=== PATIENT | male | born 1965 | race Caucasian/White ===

== ENCOUNTER 2022-05-23 05:57 | Emergency (ER) | payer BC, SELFPAY ==
[2022-05-23] VITALS (10 sets, daily range): BP systolic 97–121; BP diastolic 51–69; PULSE 66–78; RESP 16–18; TEMP 36.6; O2SAT 94–96
--- NOTE | ~2022-05-23 | XR_ITS ---
Clinical Indication: Syncope, Covid PA and lateral views of the chest: Comparison: None Findings: The lungs are clear, without evidence of focal consolidation or pleural effusion. Cardiome diastinal silhouette is within normal limits. Bones and soft tissues are unremarkable. Impression: Normal chest. Reviewed, dictated and finalized at [facility]. N SYSTEM OPERATOR Impression: Normal chest.
--- NOTE | ~2022-05-23 | CT_ITS ---
Non-contrast Head CT History: Headache Technique: Axial non-contrast imaging of the brain was performed. Dose reduction technique was used on this scan by utilizing automated exposure control and iterative reconstruction technique. The dose -length product (DLP) was 605.33 mGy-cm. Findings: There is no evidence of intracranial hemorrhage, mass lesion, or acute infarct. Brain par enchyma appears normal. The ventricles and subarachnoid spaces are normal in size. The calvarium ap pears normal. The visualized paranasal sinuses and mastoid air cells are clear. Impression: No significant abnormality seen. Reviewed, dictated and finalized at location . [employer] PLANT OPERATOR Impression: No significant abnormality seen.
--- NOTE | 2022-05-23 06:02 | ECG_ITS ---
Measurements Intervals [place] Rate: 65 P: 42 [place]: 184 QRS: 13 QRSD: 86 T: 41 QT: 384 QTc: 401 Interpretive Statements SINUS RHYTHM EARLY REPOLARIZATION [ST ELEVATION WITH NORMALLY INFLECTED T WAVE] NO PREVIOUS ECG AVAILABLE FOR COMPARISON Electronically Signed On 05-23-2022 13:19:00 PARKING ASSISTANT by Raphael Bae M.D.
[2022-05-23] MEDS: SODIUM CHLORIDE 0.9% IV 1,000 ML 999 ML IV CONT (06:10)
[2022-05-23 06:12] LABS: Glucose Point of Care 188 mg/dl (65-105)
--- NOTE | 2022-05-23 06:12 | PC.NURSE ---
C-collar removed by Dr. Benavidez at this time.
--- NOTE | 2022-05-23 06:13 | ED.SYNCOPE ---
HPI - Syncope General Chief Complaint: Syncope <Dale Benavidez MD - Last Filed: 05/23/22 07:03> Stated Complaint: FALL S/P SYNCOPE <Dale Benavidez MD - Last Filed: 05/23/22 07:03> Time Seen by Provider: 05/23/22 07:09 <Dale Benavidez MD - Last Filed: 05/23/22 07:03> History of Present Illness HPI narrative: Patient is a 56-year-old male who presents ER status post syncope. Reports he taken his dog outside to use restroom and he was riding on a white board when he felt lightheaded and passed out. He was unconscious for a short amount of time before his son came upstairs to his aid. His son had heard him fall. Patient reports he was diagnosed with COVID on 05/21/2022. He has been having alternating bouts of weakness and feeling fine. He has been feeling particularly weak tonight. He has had fevers and chills. No chest pain or chest pressure. No racing heart. Denies nausea or vomiting at this time. Per EMS blood pressure was in the 90s systolic in route. Patient is not on blood thinners. No pain to his neck and no headache. <Dale Benavidez MD - Last Filed: 05/23/22 07:03> Related Data Allergies/Adverse Reactions: Allergies Allergy/AdvReac Type Severity Reaction Status Date / Time No Known Allergies Allergy Verified 05/23/22 06:05 <Dale Benavidez MD - Last Filed: 05/23/22 07:03> Review of Systems Review of Systems: All systems reviewed & are unremarkable except as noted in HPI and below <Dale Benavidez MD - Last Filed: 05/23/22 07:03> Constitutional: Constitutional: Reports chills, Reports fatigue and Reports fever(s) <Dale Benavidez MD - Last Filed: 05/23/22 07:03> ENT: Denies nasal congestion and Denies sore throat <Dale Benavidez MD - Last Filed: 05/23/22 07:03> Cardiovascular: Cardiovascular: Denies chest pain, Denies rapid heart rate and Denies radiating jaw, neck or arm pain <Dale Benavidez MD - Last Filed: 05/23/22 07:03> Respiratory: Respiratory: Reports cough and Denies dyspnea <Dale Benavidez MD - Last Filed: 05/23/22 07:03> Gastrointestinal: Gastrointestinal: Denies abdominal pain, Denies nausea and Denies vomiting <Dale Benavidez MD - Last Filed: 05/23/22 07:03> Neurologic: Reports syncope, Denies headache(s), Denies focal weakness and Denies numbness <Dale Benavidez MD - Last Filed: 05/23/22 07:03> [facility] Past Medical History Medical History: Medical History (Updated 05/23/22 @ 06:53 by Dale Benavidez MD) Anxiety Diabetes 1.5, managed as type 2 Hyperlipemia Hypertension <Dale Benavidez MD - Last Filed: 05/23/22 07:03> Surgical History Surgical History: Surgical History (Updated 05/23/22 @ 06:15 by Dale Benavidez MD) History of cholecystectomy <Dale Benavidez MD - Last Filed: 05/23/22 07:03> Social History Social History: Social History (Updated 05/23/22 @ 06:15 by Dale Benavidez MD) Smoking status: Never smoker <Dale Benavidez MD - Last Filed: 05/23/22 07:03> Exam Narrative: GENERAL: Well-appearing, well-nourished, and in no acute distress. HEAD: Normocephalic, atraumatic. EYES: PERRL and EOMI. NECK: Supple. Midline tenderness in C-spine. Normal range of motion that is painless. CHEST: Clear to auscultation. No respiratory distress. HEART: Regular rate and rhythm. Normal peripheral pulses. ABDOMEN: Soft, nontender, nondistended. EXTREMITIES: Normal range of motion. No edema. SKIN: Warm, dry, no rash. NEURO: Alert and oriented x3. PSYCH: Normal mood and affect. <Dale Benavidez MD - Last Filed: 05/23/22 07:03> Course Reevaluation(s) Reevaluation #1: Patient presented with syncopal episode that is thought to be due to dehydration, vasovagal. He was found to have sodium of 131. He was given 2 L IVF. He was rule out of [place], significant electrolyte abnormality. He was able to ambulate with out dizziness. HE is comfortable with dischar
[2022-05-23 06:16] LABS: Basophils Percent Auto 0.1 % (0.2-1.2); Eosinophils Percent Auto 0.3 % (0-4.4); Hematocrit 45.1 % (42.0-52.0); Hemoglobin 15.1 g/dL (14.0-18.0); Immature Granulocyte Absolute 0.01 K/mm3 (0.00-0.031); Immature Granulocyte Percent A 0.1 % (0-0.5); Lymphocytes Absolute Auto 1.25 K/mm3 (0.9-3.2); Lymphocytes Percent Auto 17.4 % (18.3-44.2); Mean Corpuscular HGB Conc 33.5 g/dl (32-36); Mean Corpuscular Hemoglobin 31.1 pg (26-34); Mean Platelet Volume 9.4 fl (7.4-10.4); Monocytes Absolute Auto 0.7 K/mm3 (0.1-0.6); Monocytes Percent Auto 9.9 % (2.6-8.5); Neutrophils Absolute Auto 5.2 K/mm3 (1.3-6.7); Neutrophils Percent Auto 72.2 % (45.5-73.1); Platelet Count Result 141 k/mm3 (150-375); Red Blood Count 4.85 M/mm3 (4.6-6.20); Red Cell Distribution Width 12.1 % (11.5-14.5); White Blood Count 7.2 K/mm3 (4.5-10.0)
[2022-05-23 06:25] LABS: Lactic Acid Reflex 1.3 mmol/L (0.7-2.0)
[2022-05-23 06:26] LABS: Alanine Aminotransferase 36 U/L (6-50); Albumin Level 4.4 g/dL (3.5-5.1); Alkaline Phosphatase 53 U/L (38-126); Anion Gap 8 mmol/L (8-16); Aspartate Amino Transferase 38 U/L (17-59); Bilirubin,Total 0.8 mg/dL (0.2-1.3); Blood Urea Nitrogen 19 mg/dL (9-20); Calcium 8.8 mg/dL (8.4-10.2); Carbon Dioxide 28 mmol/L (22-30); Chloride 95 mmol/L (98-107); Estimated CRCL calculation 67 ml/min; Estimated Glomerular Filt Rate > 60; Glucose 209 mg/dL (65-110); Potassium 4.6 mmol/L (3.4-5.0); Sodium 131 mmol/L (137-145)
--- NOTE | 2022-05-23 07:05 | PC.NURSE ---
Nurse report given to Pretty HOLLAND
[2022-05-23 08:09] LABS: Troponin I < 0.012 ng/mL (0.000-0.034)
[2022-05-23 08:13] LABS: INR 1.1; Prothrombin Time 13.8 Seconds (11.1-14.7)
[2022-05-23 08:21] LABS: D Dimer 0.34 ug/mL (<0.48)
== END 2022-05-23 09:28 | disposition home or self-care (01) ==
PROVIDERS: Emergency Medicine; Emergency Provider General Practice
DX: R55 Syncope and collapse (principal); U07.1 COVID-19; E78.5 Hyperlipidemia, unspecified; I10 Essential (primary) hypertension
CPT/HCPCS: 36415; 70450; 71046; 80053; 82948; 83605; 83735; 84484; 85025; 85380; 85610; 85730; 93005; 96360; 99284; J7030

== ENCOUNTER 2022-11-11 17:44 | Emergency (ER) | payer SELFPAY ==
--- NOTE | ~2022-11-11 | XR_ITS ---
EXAMINATION: XR chest 2V 11/11/2022 18:09 INDICATION: Intermittent chest pain PROCEDURE: 2 view chest COMPARISON: 05/23/2022 FINDINGS: The lungs are clear. The cardiomediastinal silhouette is within normal limits. There are no pleural effusions. There is no pneumothorax suspected. There are cholecystectomy clips. IMPRESSION: 1: NO ACUTE CARDIOPULMONARY DISEASE. Reviewed, dictated and finalized at location A.
--- NOTE | 2022-11-11 17:45 | ECG_ITS ---
Measurements Intervals [place] Rate: 69 P: 48 [place]: 175 QRS: -8 QRSD: 84 T: 43 QT: 376 QTc: 403 Interpretive Statements SINUS RHYTHM EARLY REPOLARIZATION OTHERWISE NORMAL ECG COMPARED TO ECG 05/23/2022 06:05:12 NO SIGNIFICANT CHANGES Electronically Signed On 11-12-2022 15:42:53 CDT by Danny Coelho M.D.
[2022-11-11 17:50] VITALS: BP 161/87; PULSE 65; RESP 16; TEMP 36.7; O2SAT 97
[2022-11-11 18:24] LABS: Basophils Percent Auto 0.3 % (0.2-1.2); Eosinophils Absolute Auto 0.2 K/mm3 (0-0.3); Eosinophils Percent Auto 2.8 % (0-4.4); Hemoglobin 14.9 g/dL (14.0-18.0); Lymphocytes Absolute Auto 1.85 K/mm3 (0.9-3.2); Lymphocytes Percent Auto 30.7 % (18.3-44.2); Mean Corpuscular HGB Conc 33.9 g/dl (32-36); Mean Corpuscular Hemoglobin 30.7 pg (26-34); Mean Corpuscular Volume 90.7 fl (80-100); Monocytes Absolute Auto 0.4 K/mm3 (0.1-0.6); Monocytes Percent Auto 6.3 % (2.6-8.5); Neutrophils Absolute Auto 3.6 K/mm3 (1.3-6.7); Neutrophils Percent Auto 59.9 % (45.5-73.1); Platelet Count Result 166 k/mm3 (150-375); Red Blood Count 4.85 M/mm3 (4.6-6.20); Red Cell Distribution Width 11.9 % (11.5-14.5)
--- NOTE | 2022-11-11 18:34 | PC.NURSE ---
pt came up to me in lobby stating that he doesnt want to wait here all night. states feels much better. informed that pending labs are important to his diagnosis. pt voices understanding and states will return if symptoms reoccur. instructed to follow up with pmd
[2022-11-11 18:46] LABS: Alanine Aminotransferase 34 U/L (6-50); Albumin Level 4.6 g/dL (3.5-5.1); Alkaline Phosphatase 49 U/L (38-126); Anion Gap 8 mmol/L (8-16); Aspartate Amino Transferase 28 U/L (17-59); Bilirubin,Total 0.6 mg/dL (0.2-1.3); Blood Urea Nitrogen 20 mg/dL (9-20); Calcium 9.1 mg/dL (8.4-10.2); Carbon Dioxide 30 mmol/L (22-30); Chloride 99 mmol/L (98-107); Estimated CRCL calculation 80 ml/min; Estimated Glomerular Filt Rate > 60; Glucose 197 mg/dL (65-110); Lipase 71 U/L (23-300); Potassium 3.9 mmol/L (3.4-5.0); Sodium 137 mmol/L (137-145)
[2022-11-11 18:55] LABS: Troponin I < 0.012 ng/mL (0.000-0.034)
== END 2022-11-11 18:34 | disposition left against medical advice (07) ==
PROVIDERS: Emergency Provider Emergency Medicine
DX: R07.9 Chest pain, unspecified (principal)
CPT/HCPCS: 36415; 71046; 80053; 83690; 84484; 85025; 93005; 99199